=== PATIENT | male | born 1960 | race Caucasian/White ===

== ENCOUNTER 2020-11-12 17:41 | Emergency (ER) | payer BC ==
[2020-11-12 19:09] LABS: Absolute Lymphocytes (CBC) 2.3 K/uL (0.7-4.9); Basophils % 0.7 % (0-1.3); Hematocrit 45.3 % (39.6-49.0); Lymphocytes % 23.8 % (15.3-44.8); MPV 8.4 fL (7.6-11.3); RBC Red Blood Cell Count 5.28 M/uL (4.33-5.43)
[2020-11-12 19:10] LABS: Protime INR 1.02
[2020-11-12 19:34] LABS: ALT/SGPT 45 U/L (12-78); AST/SGOT 26 U/L (15-37); Alkaline Phosphatase 160 U/L (45-117); BUN Blood Urea Nitrogen 14 mg/dL (7-18); Bicarbonate 31 mmol/L (21-32); Bilirubin Direct < 0.1 mg/dL (0-0.2); Bilirubin Total 0.2 mg/dL (0.2-1.0); Glucose Level 116 mg/dL (74-106); Magnesium 2.3 mg/dL (1.8-2.4); Potassium 3.4 mmol/L (3.5-5.1); Protein, Total 7.7 g/dL (6.4-8.2); Sodium Level 141 mmol/L (136-145); Troponin (Emerg Dept Use Only) < 0.02 ng/mL (0.0-0.045)
[2020-11-12] MEDS ORDERED: FENTANYL CITR 100 MCG/2 ML ONE (19:56)
--- NOTE | 2020-11-12 20:08 | RAD REPORT ---
EXAM DESCRIPTION: CT - CTHCSPWOC - 11/12/2020 7:51 pm CLINICAL HISTORY: Trauma, head and neck injury. PAIN COMPARISON: <Comparisons> TECHNIQUE: Axial 5 mm thick images of the head were obtained. Axial 2 mm thick images of the cervical spine were obtained with sagittal and coronal reconstruction images generated and reviewed. All CT scans are performed using dose optimization technique as appropriate and may include automated exposure control or mA/KV adjustment according to patient size. FINDINGS: CT HEAD WITHOUT CONTRAST: No acute hemorrhage, hydrocephalus or extra-axial collection is identified.No areas of brain edema or midline shift. The paranasal sinuses and mastoids are clear.The calvarium is intact. CT CERVICAL SPINE WITHOUT CONTRAST: No fracture or subluxation.Moderate midcervical degenerative changes present with kyphosis.No prevert ebral soft tissues swelling is identified. IMPRESSION: No acute intracranial or cervical spine findings. Moderate midcervical degenerative changes seen with kyphosis.
--- NOTE | 2020-11-12 20:12 | RAD REPORT ---
EXAM DESCRIPTION: CT - Head angio - 11/12/2020 7:53 pm CLINICAL HISTORY: PAIN Headache, drowsiness COMPARISON: No comparisons TECHNIQUE: CT angiography of the head was performed with MIPs. All CT scans are performed using dose optimization technique as appropriate and may include automated exposure control or mA/KV adjustment according to patient size. FINDINGS: No evidence of aneurysm is detected. No flow-limiting stenosis or vascular malformation id entified. Antegrade flow is seen in the vertebral arteries. The vertebral arteries are codominant. The visualized dural venous sinuses are patent. IMPRESSION: No significant flow abnormality is detected.
--- NOTE | 2020-11-12 20:17 | RAD REPORT ---
EXAM DESCRIPTION: CT - Neck Angio - 11/12/2020 7:54 pm CLINICAL HISTORY: PAIN Neck pain, swelling COMPARISON: Head C Spine Mpr Wo Con dated 11/12/2020 TECHNIQUE: CT angiography of the neck vessels was performed with MIPs. All CT scans are performed using dose optimization technique as appropriate and may include automated exposure control or mA/KV adjustment according to patient size. FINDINGS: A left aortic arch is identified with bovine configuration of the great vessels. No significant flow abnormality is seen of the common carotid bilaterally. No significant stenosis is identified involving the cervical segments of both internal carotid arteri es. Normal flow is seen within both vertebral arteries. IMPRESSION: No significant flow abnormality of the neck vessels is identified.
--- NOTE | 2020-11-12 20:55 | ER ---
Nurse's Notes [facility] Name: Girban Romeo Age: 60 yrs Sex: Male : 1960 Arrival Date: 11/12/2020 Time: 17:43 Bed 13 Private MD: Diagnosis: Cervicalgia Presentation: 11/12 17:58 Chief complaint: Severe right sided neck pain x 5 day, unrelieved by Tylenol. hb Coronavirus screen: At this time, the client does not indicate any symptoms associated with coronavirus-19. Ebola Screen: No symptoms or risks identified at this time. Initial Sepsis Screen: Does the patient meet any 2 criteria? No. Patient's initial sepsis screen is negative. Does the patient have a suspected source of infection? No. Patient's initial sepsis screen is negative. Risk Assessment: Do you want to hurt yourself or someone else? Patient reports no desire to harm self or others. Onset of symptoms was November 08, 2020. 17:58 Method Of Arrival: Ambulatory 17:58 Acuity: ALE 3 hb Triage Assessment: 23:11 General: Appears. General: Behavior is calm, cooperative, appropriate for age. Pain: cc4 Complains of pain in scalp. Historical: - Allergies: 17:59 No Known Allergies; hb - Home Meds: 17:59 carvedilol 25 mg oral tab 1 tab 2 times per day [Active]; amlodipine-benazepril 5-20 mg hb oral cap 1 cap twice a day [Active]; irbesartan-hydrochlorothiazide 300-12.5 mg oral tab 1 tab once daily [Active]; Oneal Chewable Aspirin 81 mg oral chew 1 tab once daily [Active]; PreserVision AREDS-2 250-90-40-1 mg oral cap twice a day [Active]; Vitamin D 1000 mg daily [Active]; Zinc 30 mg daily [Active]; - PMHx: 18:02 Hypertension; hb - Immunization history:: Client reports having NOT received the Covid vaccine. Flu vaccine is not up to date. - Social history:: Smoking status: Patient denies any tobacco usage or history of. Screenin:03 Abuse screen: Denies threats or abuse. Denies injuries from another. Nutritional hb screening: No deficits noted. Tuberculosis screening: No symptoms or risk factors identified. Fall Risk None identified. Assessment: 19:41 Neuro: Level of Consciousness is awake, alert, obeys commands, Oriented to person, bc5 place, time, situation, Appropriate for age. 19:41 Reassessment: Initial contact. Pt c/o MCCRARY "I took Tylenol at home which worked for the bc5 last 2 days but today it hasn't touched it and I still haven't gotten anything since I've been here and the pain is getting worse" Pt denies visual changes, dizziness, CP or SOB at this time. Pt self ambulated to bathroom unassisted w/steady gait. A\\T\\O x 3, RR is even and unlabored, speaking in clear and complete sentences at this time. 20:47 Reassessment: Pt returned fro CT. c/o continued 10/10 pain, provider aware. bc5 Vital Signs: 17:58 BP 169 / 103; Pulse 64; Resp 16; Temp 98; Pulse Ox 98% on R/A; Weight 115.67 kg; Height hb 6 ft. 1 in. (185.42 cm); Pain 9/10; 19:48 BP 144 / 80; Pulse 68; Resp 15; Temp 98.1; Pulse Ox 98% on R/A; Pain 10/10; bc5 20:39 Pain 10/10; bc5 22:54 BP 131 / 77; Pulse 56; Resp 18; Temp 97.8; Pulse Ox 97% on R/A; cc4 23:28 BP 131 / 77; Pulse 56; Resp 18; Temp 97.8(O); cc4 17:58 Body Mass Index 33.64 (115.67 kg, 185.42 cm) hb ED Course: 17:43 Patient arrived in ED. rg4 17:59 Triage completed. hb 17:59 Arm band placed on. hb 18:05 Hardik Michael PA is PHCP. cp 18:05 Johnny Mccollum MD is Attending Physician. cp 18:51 Basic Metabolic Panel Sent. 5 18:51 CBC with Diff Sent. mh5 18:51 LFT's Sent. mh5 18:51 Magnesium Sent. mh5 18:51 PT-INR Sent. 5 18:51 Troponin (emerg Dept Use Only) Sent. 5 19:51 CT Head C Spine In Process Unspecified. EDMS 19:53 CT Head Angio In Process Unspecified. EDMS 19:54 CT Neck Angio In Process Unspecified. EDMS 20:46 No provider procedures requiring assistance completed. bc5 22:29 Patient Lidocaine patch 5% not available in xis; LINDSEY Mao notified with cc4 Lidocaine patch 4% verbal order rec'd with read back; LINDSEY Worrell reports that he will place order; Lidocaine patch 4% applied to posterior neck as ordered. 22:44 Yareli Kessler is Primary Nurse. cc4 23:04 Attending Physician role handed off by Johnny Mccollum MD em 23:04 Primary Nurse role handed off by Yareli Kessler em 23:05 Yareli Kessler is Primary Nurse. cc4 23:12 Patient has correct armband on for positive identification. Adult w/ patient. cc4 23:12 IV discontinued, intact, bleeding controlled, No redness/swelling at site. cc4 Administered Medications: 19:39 Drug: fentaNYL (PF) 25 mcg Route: IVP; Site: right antecubital; bc5 20:39 Follow up: Pain 12/10 Adult bc5 20:57 Drug: Potassium Effervescent Tablet 50 mEq Route: PO; lh3 20:58 Drug: Ketorolac 15 mg Route: IVP; Site: right antecubital; lh3 20:58 Drug: Diazepam 5 mg Route: IVP; Site: right antecubital; lh3 20:58 Drug: Hydrocodone-Acetaminophen (7.5 mg-325 mg) 1 tabs Route: PO; wg 22:26 Drug: Diazepam 5 mg Route: IVP; Site: right antecubital; cc4 23:28 Follow up: BP 131 / 77; Pulse 56 bpm; Resp 18 bpm; Temp 97.8 Oral cc4 22:29 Not Given (Physician Discretion): Lidoderm Patch 5 % (700 mg/patch) 1 patches Topical cp once; leave on for 12 hours; cover most painful area; may cut into smaller pieces Outcome: 20:54 Discharge ordered by . cp 22:59 Patient left the ED. bc5 23:12 Condition: improved cc4 23:12 Discharge instructions given to patient, significant other. cc4 23:12 Discharged to home with significant other. cc4 23:14 Patient left the ED. cc4 Signatures: Dispatcher [employer] Liam Parekh RN RN Hardik Roque PA PA cp Baxter, Heather, RN RN elisa Powers, Lorie 4 Saba Arevalo 5 Deja Robison, RN RN 3 Myron Suresh, Yareli Deluna 4 Jacinta Davis, RN RN bc5
--- NOTE | 2020-11-12 20:55 | EDPHYS ---
Physician Documentation [facility] Name: Gibran Romeo Age: 60 yrs Sex: Male : 1960 Arrival Date: 11/12/2020 Time: 17:43 Bed 13 Private MD: ED Physician HPI: 11/12 18:25 This 60 yrs old Male presents to ER via Ambulatory with complaints of Neck cp Pain, >24Hrs Old. 18:25 The patient or guardian complains of pain. The symptoms are located right lateral neck. cp 18:25 Onset: The symptoms/episode began/occurred chronically became worse 5 days ago. cp 18:25 Context: The neck injury/problem resulted from from unknown cause. Associated signs and cp symptoms: Pertinent positives: headache, Pertinent negatives: fever, numbness, tingling, vomiting, weakness. The pain does not radiate. Patient reports history of bulging discs in neck and usually pain relieved with tylenol. Historical: - Allergies: 17:59 No Known Allergies; hb - Home Meds: 17:59 carvedilol 25 mg oral tab 1 tab 2 times per day [Active]; amlodipine-benazepril 5-20 mg hb oral cap 1 cap twice a day [Active]; irbesartan-hydrochlorothiazide 300-12.5 mg oral tab 1 tab once daily [Active]; Oneal Chewable Aspirin 81 mg oral chew 1 tab once daily [Active]; PreserVision AREDS-2 250-90-40-1 mg oral cap twice a day [Active]; Vitamin D 1000 mg daily [Active]; Zinc 30 mg daily [Active]; - PMHx: 18:02 Hypertension; hb - Immunization history:: Client reports having NOT received the Covid vaccine. Flu vaccine is not up to date. - Social history:: Smoking status: Patient denies any tobacco usage or history of. ROS: 18:30 Constitutional: Negative for body aches, chills, fever, poor PO intake. cp 18:30 Eyes: Negative for injury, pain, redness, and discharge. cp 18:30 ENT: Negative for ear pain, sore throat, difficulty swallowing, difficulty handling secretions. 18:30 Neck: Positive for pain with movement, pain at rest, tenderness, Negative for injury or acute deformity. 18:30 Cardiovascular: Negative for chest pain, edema, palpitations. 18:30 Respiratory: Negative for cough, shortness of breath, wheezing. 18:30 Abdomen/GI: Negative for abdominal pain, nausea, vomiting, and diarrhea. 18:30 Back: Negative for pain at rest, pain with movement. 18:30 Skin: Negative for rash. 18:30 Neuro: Positive for headache, Negative for altered mental status, numbness, tingling, weakness. 18:30 All other systems are negative. Exam: 18:35 Constitutional: The patient appears in no acute distress, alert, awake, cp non-diaphoretic, non-toxic, well developed, well nourished. 18:35 Head/Face: Normocephalic, atraumatic. cp 18:35 Eyes: Periorbital structures: appear normal, Pupils: equal, round, and reactive to light and accomodation, Extraocular movements: intact throughout, Conjunctiva: normal, no exudate, no injection, Sclera: no appreciated abnormality, Lids and lashes: appear normal, bilaterally. 18:35 ENT: External ear(s): are unremarkable, Ear canal(s): are normal, clear, TM's: dullness, bilaterally, Nose: is normal, Mouth: Lips: moist, Oral mucosa: moist, Posterior pharynx: Airway: no evidence of obstruction, patent. 18:35 Neck: External neck: no acute changes, C-spine: vertebral tenderness, is not appreciated, crepitus, is not appreciated, ROM/movement: pain, that is severe, with flexion, limited range of motion, is not appreciated, Meningeal signs: are not present, nuchal rigidity, is not appreciated, Lymph nodes: no appreciated lymphadenopathy. 18:35 Chest/axilla: Inspection: normal, Palpation: is normal, no crepitus, no tenderness. 18:35 Cardiovascular: Rate: normal, Rhythm: regular, Pulses: Pulses are 2+ in right radial artery and left radial artery. Edema: is not appreciated, JVD: is not appreciated. 18:35 Respiratory: the patient does not display signs of respiratory distress, Respirations: normal, no use of accessory muscles, no retractions, labored breathing, is not present, Breath sounds: are clear throughout, no decreased breath sounds, no stridor, no wheezing. 18:35 Abdomen/GI: Exam negative for discomfort, distension, guarding, Inspection: abdomen appears normal. 18:35 Back: pain, is absent, ROM is normal, vertebral tenderness, is not appreciated. 18:35 Skin: no rash present. 18:35 Neuro: Orientation: to person, place \T\ time. Mentation: is normal, Motor: moves all fours, strength is normal, Sensation: is normal. Vital Signs: 17:58 BP 169 / 103; Pulse 64; Resp 16; Temp 98; Pulse Ox 98% on R/A; Weight 115.67 kg; Height hb 6 ft. 1 in. (185.42 cm); Pain 9/10; 19:48 BP 144 / 80; Pulse 68; Resp 15; Temp 98.1; Pulse Ox 98% on R/A; Pain 10/10; bc5 20:39 Pain 10/10; bc5 22:54 BP 131 / 77; Pulse 56; Resp 18; Temp 97.8; Pulse Ox 97% on R/A; cc4 23:28 BP 131 / 77; Pulse 56; Resp 18; Temp 97.8(O); cc4 17:58 Body Mass Index 33.64 (115.67 kg, 185.42 cm) hb MDM: 18:13 Patient medically screened. cp 20:54 Data reviewed: vital signs, nurses notes, lab test result(s), EKG, radiologic studies, cp CT scan. 20:54 Differential diagnosis: bacterial meningitis, Cervical Disc Herniation fracture, cp Thoracic Outlet Syndrome torticollis. Test interpretation: by ED physician or midlevel provider: ECG. Counseling: I had a detailed discussion with the patient and/or guardian regarding: the historical points, exam findings, and any diagnostic results supporting the discharge/admit diagnosis, lab results, radiology results, the need for outpatient follow up, for definitive care, an health care law specialist, to return to the emergency department if symptoms worsen or persist or if there are any questions or concerns that arise at home. Response to treatment: the patient's symptoms have markedly improved after treatment, and as a result, I will discharge patient. 11/12 18:17 Order name: Basic Metabolic Panel; Complete Time: 20:15 cp 11/12 20:15 Interpretation: Normal except: K 3.4; GLUC 116; GFR 72. cp 11/12 18:17 Order name: CBC with Diff; Complete Time: 19:28 cp 11/12 18:17 Order name: LFT's; Complete Time: 20:15 cp 11/12 18:17 Order name: Magnesium; Complete Time: 20:15 cp 11/12 18:17 Order name: PT-INR; Complete Time: 19:28 cp 11/12 18:17 Order name: Troponin (emerg Dept Use Only); Complete Time: 20:15 cp 11/12 18:17 Order name: CT Head C Spine; Complete Time: 20:15 cp 11/12 18:17 Order name: CT Head Angio; Complete Time: 20:15 cp 11/12 18:17 Order name: CT Neck Angio; Complete Time: 20:18 cp 12 20:18 Interpretation: Report reviewed. cp 11/12 18:17 Order name: EKG; Complete Time: 18:18 cp 11/12 18:17 Order name: Cardiac monitoring; Complete Time: 20:32 cp 11/12 18:17 Order name: EKG - Nurse/Tech; Complete Time: 20:32 cp 11/12 18:17 Order name: IV Saline Lock; Complete Time: 18:51 cp 11/12 18:17 Order name: Labs collected and sent; Complete Time: 18:51 cp 11/12 18:17 Order name: O2 Per Protocol; Complete Time: 18:51 cp 11/12 18:17 Order name: O2 Sat Monitoring; Complete Time: 18:51 cp Administered Medications: 19:39 Drug: fentaNYL (PF) 25 mcg Route: IVP; Site: right antecubital; bc5 20:39 Follow up: Pain 10/10 Adult bc5 20:57 Drug: Potassium Effervescent Tablet 50 mEq Route: PO; lh3 20:58 Drug: Ketorolac 15 mg Route: IVP; Site: right antecubital; lh3 20:58 Drug: Diazepam 5 mg Route: IVP; Site: right antecubital; lh3 20:58 Drug: Hydrocodone-Acetaminophen (7.5 mg-325 mg) 1 tabs Route: PO; wg 22:26 Drug: Diazepam 5 mg Route: IVP; Site: right antecubital; cc4 23:28 Follow up: BP 131 / 77; Pulse 56 bpm; Resp 18 bpm; Temp 97.8 Oral cc4 22:29 Not Given (Physician Discretion): Lidoderm Patch 5 % (700 mg/patch) 1 patches Topical cp once; leave on for 12 hours; cover most painful area; may cut into smaller pieces Disposition: 11/13 07:13 Co-signature as Attending Physician, Johnny Mccollum MD I agree with the assessment and rn plan of care. Attestation: The patient's history, exam findings, diagnostics, and a summary of any interventions or procedures was reviewed in detail with Hardik PORTILLO. Disposition Summary: 11/12/20 20:54 Discharge Ordered Location: Home cp Problem: an acute exacerbation cp Symptoms: have improved cp Condition: Stable cp Diagnosis - Cervicalgia cp Followup: cp - With: Private Physician - When: 1 - 2 days - Reason: Recheck today's complaints Discharge Instructions: - Discharge Summary Sheet cp - Neck Exercises cp Forms: - Medication Reconciliation Form cp - Thank You Letter cp - Antibiotic Education cp - Prescription Opioid Use cp Prescriptions: - Lidoderm 5 % Topical adhesive patch,medicated - apply 1 patch by TOPICAL route once daily As needed; 1 box; Refills: 0, Product cp Selection Permitted - Baclofen 10 mg Oral Tablet - take 1 tablet by ORAL route 3 times per day; 20 tablet; Refills: 0, Product cp Selection Permitted - Medrol (Partha) 4 mg Oral Tablets, Dose Pack - take 1 tablet by ORAL route as directed - follow package instructions; 1 cp packet; Refills: 0, Product Selection Permitted Signatures: Dispatcher [employer] Johnny Obrien MD MD rn Page, Corey, PA PA cp Janelle Gutierrez, RN JOSE JUAN Deja Robison RN RN 3 Myron Suresh RN wg Cooper, [facility] Jacinta Davis RN RN bc5
[2020-11-12] MEDS ORDERED: KETOROLAC 30 MG/ML INJ ONE (21:19)
[2020-11-12] MEDS ORDERED: POTASSIUM 25 MEQ EFFERV TAB ONE (21:19)
[2020-11-12] MEDS ORDERED: DIAZEPAM 10 MG/2 ML INJ SYRINGE ONE ×2 (21:19→22:52)
[2020-11-12] MEDS ORDERED: HYDROCODONE/APAP 7.5/325 MG TAB ONE (21:20)
[2020-11-12] MEDS ORDERED: LIDOCAINE 4% PATCH ONE (22:54)
[2020-11-12 23:18] VITALS: O2SAT 98
[2020-11-12 23:20] VITALS: BP 144/80; TEMP 98.1
== END 2020-11-12 23:14 | disposition home or self-care (01) ==
LOC: ER 17:41
DX: M54.2 Cervicalgia (principal); I10 Essential (primary) hypertension; Z79.82 Long term (current) use of aspirin
CPT/HCPCS: 93005; 85025; 80048; 36415; 83735; 85610; 80076; 84484; 70450; 72125; 70496; 70498; 96375; 96374; 99284; Q9967; J3360 ×2; J3010